=== PATIENT | male | born 1965 | race Hispanic/Latino ===

== ENCOUNTER 2023-11-01 18:27 | Observation (INO) | payer MEDICARE ==
[~2023-11-01] VITALS: Ht 172.7 cm; Wt 81.6 kg
[2023-11-01 19:01] LABS: BASOPHILS # (AUTO) 0.1 (0.0-0.1); BASOPHILS % 0.7 % (0.0-1.0); EOSINOPHILS # (AUTO) 0.4 (0.0-0.4); EOSINOPHILS % 4.5 % (0.0-6.0); HEMATOCRIT 30.9 % (38.2-49.6); HEMOGLOBIN 9.7 g/dL (14.0-18.0); MEAN CORPUSCULAR HEMOGLOBIN 30.2 pg (28-32); MEAN CORPUSCULAR HGB CONC 31.4 g/dL (31-35); MEAN CORPUSCULAR VOLUME 96.3 fL (81-99); MONOCYTES # (AUTO) 0.6 (0.2-0.8); MONOCYTES % 7.1 % (4.4-11.3); NEUTROPHILS # (AUTO) 5.6 (2.1-6.9); NEUTROPHILS % 64.5 % (38.7-80.0); PLATELET COUNT 228 x10e3/uL (140-360); RED BLOOD COUNT 3.21 x10e6/uL (4.3-5.7); RED CELL DISTRIBUTION WIDTH 13.4 % (11.7-14.4); WHITE BLOOD COUNT 8.73 x10e3/uL (4.8-10.8)
[2023-11-01 19:21] LABS: ANION GAP 13.2 mmol/L (8-16); CREATININE, SERUM 2.75 mg/dL (0.72-1.25)
[2023-11-01 19:24] LABS: POTASSIUM 6.2 mmol/L (3.5-5.1)
[2023-11-01] MEDS: CALCIUM CHLORIDE 10% 1.36 MEQ/ML 10ML SYR IV STA (20:11)
[2023-11-01] MEDS: INSULIN REGULAR, HUMAN 100 UNIT/1 ML IV ONE (20:12)
[2023-11-01] MEDS: DEXTROSE 50% SYRINGE 50 ML IV STA (20:12)
[2023-11-01] MEDS: SODIUM BICARBONATE 8.4% INJ 50 ML SYR IV STA (20:12)
[2023-11-01] MEDS ORDERED: DEXTROSE 50% SYRINGE 50 ML IV PRN (20:30)
[2023-11-01] MEDS ORDERED: ONDANSETRON HCL INJ 2MG/ML 2ML 2 MG/ML VIAL IV PRN (20:30)
[2023-11-01] MEDS: SODIUM CHLORIDE 0.9% 1000ML 1,000 ML IV ONE (20:31)
[2023-11-01] MEDS: INSULIN REGULAR, HUMAN 100 UNIT/1 ML SQ SCH (20:34)
[2023-11-01] MEDS: SOD POLYSTYRENE SULFONATE SUSP 15 GM/60 ML BTL PO ONE (20:34)
[2023-11-01] MEDS: FUROSEMIDE INJ 10 MG/ML 2 ML VIAL IV ONE (20:34)
[2023-11-01 21:44] LABS: ABG HCO3 19 mmol/L (22-26); ABG PCO2 34 mmHg (35-45); ABG PH 7.36 (7.35-7.45); ABG PO2 102 mmHg (80-105); ABG TCO2 20
[2023-11-02] MEDS ORDERED: POLYETHYLENE GLYCOL 3350 17 GM PACK PO PRN (01:00)
[2023-11-02] MEDS ORDERED: ACETAMINOPHEN 325 MG TAB PO PRN ×2 (01:00→09:00)
[2023-11-02] MEDS ORDERED: HYDRALAZINE HCL 20 MG/ML VIAL IV PRN (01:00)
[2023-11-02 03:15] LABS: ANION GAP 14.5 mmol/L (8-16); CALCIUM 8.4 mg/dL (8.4-10.2); CREATININE, SERUM 2.62 mg/dL (0.72-1.25)
[2023-11-02 03:17] LABS: POTASSIUM 5.5 mmol/L (3.5-5.1)
[2023-11-02 06:10] LABS: BASOPHILS % 0.5 % (0.0-1.0); EOSINOPHILS # (AUTO) 0.4 (0.0-0.4); EOSINOPHILS % 4.8 % (0.0-6.0); HEMATOCRIT 29.8 % (38.2-49.6); HEMOGLOBIN 9.2 g/dL (14.0-18.0); LYMPHOCYTES # (AUTO) 1.4 (1.0-3.2); LYMPHOCYTES % 18.3 % (18.0-39.1); MEAN CORPUSCULAR HEMOGLOBIN 30.5 pg (28-32); MEAN CORPUSCULAR HGB CONC 30.9 g/dL (31-35); MEAN CORPUSCULAR VOLUME 98.7 fL (81-99); MONOCYTES # (AUTO) 0.5 (0.2-0.8); MONOCYTES % 6.9 % (4.4-11.3); NEUTROPHILS # (AUTO) 5.3 (2.1-6.9); NEUTROPHILS % 69.1 % (38.7-80.0); PLATELET COUNT 208 x10e3/uL (140-360); RED BLOOD COUNT 3.02 x10e6/uL (4.3-5.7); RED CELL DISTRIBUTION WIDTH 13.2 % (11.7-14.4); WHITE BLOOD COUNT 7.69 x10e3/uL (4.8-10.8)
[2023-11-02 07:39] VITALS: PULSE 72; RESP 11; O2SAT 100
[2023-11-02] MEDS: DOCUSATE SODIUM 100 MG CAP PO SCH (09:00)
[2023-11-02] MEDS ORDERED: BISACODYL 10 MG SUPP PR PRN (09:00)
[2023-11-02] MEDS: SENNOSIDES 8.6 MG TAB PO SCH (09:00)
[2023-11-02 10:41] VITALS: PULSE 94; RESP 17; O2SAT 100
[2023-11-02 14:01] LABS: ANION GAP 12.4 mmol/L (8-16); CALCIUM 8.2 mg/dL (8.4-10.2); CREATININE, SERUM 2.45 mg/dL (0.72-1.25)
[2023-11-02 14:12] LABS: POTASSIUM 5.4 mmol/L (3.5-5.1)
[2023-11-02] MEDS ORDERED: NIFEDIPINE ER60 M1 PO (17:00)
[2023-11-02] MEDS ORDERED: FLOMAX0.4 MG PO (17:00)
[2023-11-02] MEDS ORDERED: HYDRALAZINE HCL50 MG PO (17:00)
[2023-11-02] MEDS ORDERED: PANTOPRAZOLE SO40 MG PO (17:00)
[2023-11-02] MEDS: SOD POLYSTYRENE SULFONATE SUSP 15 GM/60 ML BTL PO ONE (17:26)
[2023-11-02] MEDS: SODIUM CHLORIDE 0.9% 1000ML 1,000 ML IV ONE (17:28)
[2023-11-02] MEDS: HYDRALAZINE HCL 20 MG/ML VIAL IV PRN (17:31)
[2023-11-02 17:51] LABS: CLARITY,URINE SL CLOUDY (CLEAR); COLOR,URINE YELLOW (YELLOW)
[2023-11-02 17:52] LABS: BILIRUBIN,URINE NEGATIVE (NEGATIVE); GLUCOSE, URINE NEGATIVE (NEGATIVE); KETONES,URINE NEGATIVE (NEGATIVE); LEUKOCYTE ESTERASE ,URINE SMALL (NEGATIVE); NITRITE,URINE NEGATIVE (NEGATIVE); PH,URINE 6.5 (5 - 7); PROTEIN,URINE DIPSTICK >=300 (NEGATIVE); URINE UROBILINOGEN 0.2 mg/dL (0.2 - 1)
[2023-11-02 17:59] LABS: RBC,URINE 21-50 /HPF (0-5)
[2023-11-02 18:08] LABS: CREATININE,URINE RANDOM 54.61 mg/dL (63-166)
[2023-11-02 18:41] LABS: TOTAL PROTEIN, URINE 235.6 mg/dL (1-14)
[2023-11-02 19:00] VITALS: TEMP 98.3
[2023-11-02 20:01] VITALS: PULSE 80; RESP 16
[2023-11-02 21:10] VITALS: BP 156/78; PULSE 85; RESP 20; TEMP 98.1; O2SAT 100
[2023-11-02 21:30] VITALS: BP 156/78; PULSE 85; RESP 21; TEMP 98.1; O2SAT 100
[2023-11-03] VITALS (10 sets, daily range): BP systolic 100–175; BP diastolic 62–84; PULSE 70–85; RESP 16–20; TEMP 98.1–98.6; O2SAT 98–100
[2023-11-03 06:11] LABS: BASOPHILS % 0.4 % (0.0-1.0); EOSINOPHILS # (AUTO) 0.5 (0.0-0.4); EOSINOPHILS % 6.3 % (0.0-6.0); HEMATOCRIT 29.2 % (38.2-49.6); HEMOGLOBIN 9.1 g/dL (14.0-18.0); LYMPHOCYTES # (AUTO) 1.5 (1.0-3.2); LYMPHOCYTES % 21.1 % (18.0-39.1); MEAN CORPUSCULAR HEMOGLOBIN 30.4 pg (28-32); MEAN CORPUSCULAR HGB CONC 31.2 g/dL (31-35); MEAN CORPUSCULAR VOLUME 97.7 fL (81-99); MONOCYTES # (AUTO) 0.5 (0.2-0.8); MONOCYTES % 6.6 % (4.4-11.3); NEUTROPHILS # (AUTO) 4.8 (2.1-6.9); NEUTROPHILS % 65.5 % (38.7-80.0); PLATELET COUNT 203 x10e3/uL (140-360); RED BLOOD COUNT 2.99 x10e6/uL (4.3-5.7); RED CELL DISTRIBUTION WIDTH 13.2 % (11.7-14.4); WHITE BLOOD COUNT 7.26 x10e3/uL (4.8-10.8)
[2023-11-03 06:26] LABS: CHOL/HDL RATIO 5.8 (3.9-4.7)
[2023-11-03 06:29] LABS: ALBUMIN 2.8 g/dL (3.5-5.0); ALBUMIN/GLOBULIN RATIO 0.8 (0.8-2.0); ANION GAP 11.9 mmol/L (8-16); BILIRUBIN,TOTAL 0.2 mg/dL (0.2-1.2); CREATININE, SERUM 2.19 mg/dL (0.72-1.25); MAGNESIUM 1.7 MG/DL (1.3-2.1); PHOSPHORUS 3.4 MG/DL (2.3-4.7); POTASSIUM 4.9 mmol/L (3.5-5.1); TOTAL PROTEIN 6.3 g/dL (6.5-8.1)
[2023-11-03 06:49] LABS: THYROID STIMULATING HORMONE 1.187 uIU/mL (0.350-4.940)
[2023-11-03] MEDS: NIFEDIPINE CR 30 MG TAB PO SCH (13:06)
[2023-11-03] MEDS: PANTOPRAZOLE SOD 40 MG TABEC PO SCH (13:06)
[2023-11-03] MEDS: HYDRALAZINE HCL 25 MG TAB PO SCH (13:06)
[2023-11-03] MEDS: TAMSULOSIN HCL 0.4 MG CAP PO SCH (13:06)
[2023-11-03] MEDS ORDERED: ACETAMINOPHEN325 M1 PO (13:24)
[2023-11-03] MEDS ORDERED: SENOKOT8.6 MG PO (13:24)
[2023-11-03] MEDS ORDERED: MIRALAX17 GM PO (13:24)
[2023-11-03] MEDS ORDERED: DULCOLAX SUPP10 MG PR (13:24)
[2023-11-04] VITALS: BP 153/74; PULSE 76; RESP 16; TEMP 98.2; O2SAT 100
[2023-11-04 04:00] VITALS: BP 136/67; PULSE 82; RESP 18; TEMP 98.1; O2SAT 100
[2023-11-04 06:40] LABS: BASOPHILS % 0.5 % (0.0-1.0); EOSINOPHILS # (AUTO) 0.5 (0.0-0.4); EOSINOPHILS % 5.7 % (0.0-6.0); HEMATOCRIT 29.1 % (38.2-49.6); LYMPHOCYTES # (AUTO) 1.9 (1.0-3.2); LYMPHOCYTES % 23.4 % (18.0-39.1); MEAN CORPUSCULAR HEMOGLOBIN 29.9 pg (28-32); MEAN CORPUSCULAR HGB CONC 30.9 g/dL (31-35); MEAN CORPUSCULAR VOLUME 96.7 fL (81-99); MONOCYTES # (AUTO) 0.5 (0.2-0.8); MONOCYTES % 5.8 % (4.4-11.3); NEUTROPHILS # (AUTO) 5.3 (2.1-6.9); NEUTROPHILS % 64.5 % (38.7-80.0); PLATELET COUNT 193 x10e3/uL (140-360); RED BLOOD COUNT 3.01 x10e6/uL (4.3-5.7); RED CELL DISTRIBUTION WIDTH 13.2 % (11.7-14.4); WHITE BLOOD COUNT 8.24 x10e3/uL (4.8-10.8)
[2023-11-04 07:19] LABS: ANION GAP 13.6 mmol/L (8-16); CALCIUM 7.9 mg/dL (8.4-10.2); CREATININE, SERUM 2.14 mg/dL (0.72-1.25); POTASSIUM 4.6 mmol/L (3.5-5.1)
[2023-11-04 08:00] VITALS: BP 112/61; PULSE 82; RESP 18; TEMP 98.1; O2SAT 100
[2023-11-04 08:01] VITALS: BP 112/61; PULSE 85; RESP 18; TEMP 98.2; O2SAT 99
[2023-11-04 09:06] VITALS: BP 112/61; PULSE 85
[2023-11-06 16:18] LABS: GLOBULIN TOTAL 3.2; KAPPA LIGHT CHAINS 87.6; SPE ALPHA 1 GLOBULIN 0.2; SPE ALPHA 2 GLOBULIN 0.9; SPE GAMMA GLOBULIN 1.2
[2023-11-06 16:19] LABS: LAMBDA LIGHT CHAINS 87.9
[2023-11-06 16:23] LABS: A/G RATIO 0.9
== END 2023-11-04 11:20 ==
LOC: ER 18:33 → ERHOLD 20:18 → MED/SURG3 11-02 21:03
PROVIDERS: ADMIT Internal Medicine; ATTEND Internal Medicine
DX: E87.5 Hyperkalemia (principal); N17.9 Acute kidney failure, unspecified; E87.20 Acidosis, unspecified; I12.9 Hypertensive chronic kidney disease with stage 1 through stage 4 chronic kidney disease, or unspecified chronic kidney disease; E11.22 Type 2 diabetes mellitus with diabetic chronic kidney disease; N18.9 Chronic kidney disease, unspecified; E11.59 Type 2 diabetes mellitus with other circulatory complications; I25.10 Atherosclerotic heart disease of native coronary artery without angina pectoris; R53.81 Other malaise; N40.0 Benign prostatic hyperplasia without lower urinary tract symptoms; D64.9 Anemia, unspecified; Z86.73 Personal history of transient ischemic attack (TIA), and cerebral infarction without residual deficits; Z79.899 Other long term (current) drug therapy
CPT/HCPCS: 36415 ×4; 36600; 51700; 76770; 80048 ×3; 80053; 80061; 81001; 82570; 82607; 82728; 82805; 82948 ×4; 83036; 83540; 83735; 84100; 84156; 84165; 84439; 84443; 84466; 85025 ×4; 93005; 94799; 97110; 97161; 97530; 99284; G0378 ×4; J0360 ×2; J1940; J7030 ×2; J7799; S0164 ×2